=== PATIENT | female | born 1995 | race Hispanic/Latino ===

== ENCOUNTER 2021-03-27 21:09 | Emergency (ER) | payer MEDICAID, OTHER ==
[~2021-03-27] VITALS: Ht 154.9 cm; Wt 48.5 kg
[2021-03-27 21:43] LABS: APPEARANCE,URINE Clear (CLEAR); BILIRUBIN,URINE Negative (NEGATIVE); COLOR,URINE Yellow (YELLOW); GLUCOSE, URINE (UA) Negative (NEGATIVE); KETONES,URINE Trace mg/dL (NEGATIVE); LEUKOCYTE ESTERASE ,URINE Trace (NEGATIVE); NITRATE,URINE Negative (NEGATIVE); OCCULT BLOOD,URINE Nonhemolyzed Trace (NEGATIVE); PROTEIN,URINE Negative (NEGATIVE)
[2021-03-27 21:48] LABS: HCG,QUAL RESULT NEGATIVE (NEGATIVE)
[2021-03-27 21:50] LABS: BACTERIA,URINE Rare /HPF (None Seen); RBC,URINE None Seen /HPF (0-1); WBC,URINE 0-1 /HPF (0-1)
[2021-03-27 21:51] LABS: SQUAMOUS EPITHELIAL CELL,UR 0-2 /HPF (0-2)
[2021-03-27 22:32] VITALS: BP 110/68
[2021-03-27] MEDS ORDERED: METR500T PO (23:46)
[2021-03-27] MEDS ORDERED: METR-172 PO (23:55)
[2021-03-28] VITALS: BP 112/56
[2021-03-29 21:07] LABS: CHLAMYDIA DNA N.A.AMPLIFY Negative (Negative)
== END 2021-03-28 00:09 | disposition home or self-care (01) ==
LOC: EDH 21:09
DX: N89.8 Other specified noninflammatory disorders of vagina (principal); N93.9 Abnormal uterine and vaginal bleeding, unspecified; R10.30 Lower abdominal pain, unspecified; Z79.899 Other long term (current) drug therapy
CPT/HCPCS: 81001; 81025; 87210; 87486; 87797